=== PATIENT | female | born 1955 | race Caucasian/White ===

== ENCOUNTER 2019-10-26 21:35 | Emergency (ER) | payer BC, MEDICAID ==
[~2019-10-26] VITALS: Ht 165.1 cm; Wt 63.5 kg
[~2019-10-26 21:35] MED LIST: AZIT-62 PO; FOLI-43 PO; METH2.5T PO; NAPR-686 PO; PAIN MED; PRED5TAB3 PO; RABE20TA18 PO; TRAM50TA2 PO
[2019-10-26 21:40] VITALS: BP_SYST 171
[2019-10-26] MEDS ORDERED: DIPH-TET-PERTUS Vaccine 0.5 ML VIAL (ADACEL) I.M. ONE (22:00)
[2019-10-26] MEDS ORDERED: LIDOCAINE 1% 10 MG/ML, 20 ML MDV SUBCUT ONE (22:00)
[2019-10-26] MEDS ORDERED: BACITRACIN 1 GM OINT TP ONE (22:52)
[2019-10-26 22:59] VITALS: BP_SYST 136
== END 2019-10-26 22:59 | disposition home or self-care (01) ==
LOC: SED 21:35
DX: S91.111A Laceration without foreign body of right great toe without damage to nail, initial encounter (principal); K21.9 Gastro-esophageal reflux disease without esophagitis; Z79.899 Other long term (current) drug therapy; W25.XXXA Contact with sharp glass, initial encounter; Y93.89 Activity, other specified; Y92.89 Other specified places as the place of occurrence of the external cause; Y99.8 Other external cause status
CPT/HCPCS: 12001; 73660; 90471; 90715; 99283; J2001

== ENCOUNTER 2020-05-30 12:09 | Emergency (ER) | payer MEDICAID ==
[~2020-05-30] VITALS: Ht 167.6 cm; Wt 63.5 kg
[2020-05-30 12:20] VITALS: BP_SYST 158
--- NOTE | 2020-05-30 12:20 | NUR ---
Patient to ER bed 1 to gown for evaluation. Side rails up. REPORT RECEIVED FROM ARIANA GONSALES
--- NOTE | 2020-05-30 12:25 | NUR ---
PT REPORTS HAVING COVID VACCINE LAST THURSDAY AND HAS HAD LEFT UPPER ARM PAIN SINCE THEN. NO BRUISING OR SWELLING NOTED. TENDER TO THE TOUCH. PT IS [id number], V/S STABLE
--- NOTE | 2020-05-30 12:52 | NUR ---
ER at bedside examining patient.
[2020-05-30] MEDS ORDERED: HYDROcodone/ACETAMIN 10-325 MG TAB PO ONE (13:00)
[2020-05-30] MEDS ORDERED: MORPHINE SULFATE 10 MG/ML VIAL IM ONE (13:15)
[2020-05-30] MEDS ORDERED: ONDANSETRON 4 MG ODT TAB PO ONE (13:15)
--- NOTE | 2020-05-30 13:31 | NUR ---
Patient transported to radiology via WC, accompanied by STAFF.
[2020-05-30] MEDS ORDERED: MORPHINE 4 MG INJ. 4 MG/ML VIAL IM ONE (14:30)
[2020-05-30] MEDS ORDERED: KETAMINE 30 MG/3 ML SYRINGE IM ONE (14:30)
[2020-05-30] MEDS ORDERED: NAPR-688 PO (14:31)
[2020-05-30] MEDS ORDERED: PRED50TA PO (14:31)
[2020-05-30] MEDS ORDERED: HYDR-3927 PO (14:31)
--- NOTE | 2020-05-30 15:01 | NUR ---
UPDATE PROVIDED TO DAUGHTER, QUESTIONS ANSWERED /COMMUNICATED UNDERSTANDING
--- NOTE | 2020-05-30 15:20 | NUR ---
PT SLEEPING IN BED, NO S/SX OF DISTRESS, V/S STABLE
--- NOTE | 2020-05-30 16:30 | NUR ---
SW SON FOR STATUS UPDATE. DAUGHTER TO COME AND PICKUP ONCE DC'D. VERBALIZED UNDERSTANDING
[2020-05-30 16:50] VITALS: BP_SYST 142
--- NOTE | 2020-05-30 16:50 | NUR ---
Patient given written and verbal discharge instructions and verbalizes understanding. ER MD discussed with patient the results and treatment provided. Patient in stable condition. ID arm band removed. Rx of NORCO, NAPROXEN AND PREDNISONE given. Patient educated on pain management and to follow up with PMD. Pain Scale 0/10. Opportunity for questions provided and answered. Medication side effect fact sheet provided.
== END 2020-05-30 16:50 | disposition home or self-care (01) ==
LOC: SED 12:09
DX: M75.02 Adhesive capsulitis of left shoulder (principal); K21.9 Gastro-esophageal reflux disease without esophagitis; Z79.899 Other long term (current) drug therapy
CPT/HCPCS: 73200; 76376; 96372; 99284; J2270 ×2; Q0162

== ENCOUNTER 2022-05-01 07:24 | Day surgery (SDC) | payer MEDICAID ==
[~2022-05-01] VITALS: Ht 162.6 cm; Wt 63.5 kg
[~2022-05-01 07:24] MED LIST changes: -AZIT-62 PO; +AZIT-93 PO; +HYDR-3927 PO; +NAPR-688 PO; +PRED50TA PO; -PRED5TAB3 PO; +[UNRECOGNIZED DRUG - CODE] PO
[2022-05-01] MEDS ORDERED: MIDAZOLAM HCL 5 MG/5 ML VIAL ONE ×2 (10:04→10:17)
[2022-05-01] MEDS ORDERED: MEPERIDINE 50 MG/ML VIAL ONE (10:04)
[2022-05-01 12:34] VITALS: BP_SYST 116
== END 2022-05-01 11:55 | disposition home or self-care (01) ==
LOC: SDS 07:24 → SMU 07:27 → SDS 11:00
PROVIDERS: ATTEND Internal Medicine
DX: R19.7 Diarrhea, unspecified (principal); K63.5 Polyp of colon; K57.30 Diverticulosis of large intestine without perforation or abscess without bleeding; K64.8 Other hemorrhoids; Z86.010 Personal history of colon polyps; Z79.899 Other long term (current) drug therapy; Z20.822 Contact with and (suspected) exposure to COVID-19
CPT/HCPCS: 45380; 45385; 87426; 36415; 88305; 99152; 99153; G0378; J2250; J2175

== ENCOUNTER 2023-03-31 13:57 | Inpatient (IN) | payer MEDICAID, OTHER ==
[~2023-03-31] VITALS: Ht 165.1 cm; Wt 71.2 kg
[2023-03-31 14:23] VITALS: BP_SYST 152; PULSE 88; RESP 20; TEMP 97.8; O2SAT 93
[2023-03-31] MEDS: ONDANSETRON HCL 4 MG/2 ML VIAL IVP ONE (14:45)
[2023-03-31] MEDS: NACL 0.9% 1,000 ML IV ONE (14:45)
[2023-03-31] MEDS: MORPHINE 2 MG/ML INJ. SYRINGE IVP ONE (14:46)
[2023-03-31 15:16] LABS: BASOPHILS % (AUTO) 0.4 % (0.0-2.0); EOSINOPHILS # (AUTO) 0.2 K/uL (0.0-0.4); EOSINOPHILS % (AUTO) 2.4 % (0.0-4.0); HEMATOCRIT 36.2 % (36-48); HEMOGLOBIN 11.8 g/dL (12.0-16.0); LYMPHOCYTES # (AUTO) 2.6 K/uL (1.0-5.5); LYMPHOCYTES % (AUTO) 37.6 % (20.5-51.5); MEAN CORPUSCULAR HEMOGLOBIN 28 pg (27-31); MEAN CORPUSCULAR HGB CONC 33 % (32-36); MEAN CORPUSCULAR VOLUME 86 fL (79.0-98.0); MONOCYTES # (AUTO) 0.7 K/uL (0.0-1.0); MONOCYTES % (AUTO) 10.5 % (1.7-9.3); NEUTROPHILS # (AUTO) 3.4 K/uL (1.8-7.7); NEUTROPHILS % (AUTO) 49.1 % (40.0-70.0); PLATELET COUNT (AUTO) 271 K/uL (130-430); RED CELL DISTRIBUTION WIDTH 15.2 % (9.0-15.0); WHITE BLOOD COUNT (AUTO) 6.8 K/uL (4.8-10.8)
[2023-03-31 15:30] LABS: ANION GAP 9 (5-15); CALCIUM 8.9 mg/dL (8.4-11.0); CARBON DIOXIDE 27 mmol/L (23-29); CHLORIDE 105 mmol/L (98-107); CREATININE 0.61 mg/dL (0.55-1.30); GFR AFRICAN AMERICAN 126 mL/min (>90); GLUCOSE 91 mg/dL (74-106); SODIUM SERUM 141 mmol/L (136-145); UREA NITROGEN, BLOOD 16 mg/dL (8-21)
[2023-03-31 15:37] LABS: GFR NON AFRICAN-AMERICAN 104 mL/min (>90)
[2023-03-31] MEDS ORDERED: iohexoL 350 mgI/mL, 100 ML INFUS..BTL IV ONE (15:47)
[2023-03-31 15:49] LABS: ALANINE AMINOTRANSFERASE 29 U/L (12-78); ALBUMIN 3.6 g/dL (3.4-4.8); ASPARTATE AMINOTRANSFERASE 19 U/L (10-37); BILIRUBIN,DIRECT 0.1 mg/dL (0.0-0.3); CREATINE KINASE, TOTAL 69 U/L (26-192); LIPASE 24 U/L (16-77); PHOSPHORUS 3.4 mg/dL (2.7-4.5); TOTAL BILIRUBIN 0.3 mg/dL (0.0-1.0); TOTAL PROTEIN, SERUM 7.6 g/dL (6.4-8.3)
[2023-03-31 16:24] LABS: PROTHROMBIN TIME 10.3 SECS (9.5-12.5)
[2023-03-31] MEDS ORDERED: NOR10 PO (17:23)
[2023-03-31] MEDS ORDERED: LIP10 PO (17:23)
[2023-03-31] MEDS ORDERED: APIX5TAB PO (17:23)
[2023-03-31] MEDS ORDERED: LOSA-412 PO (17:23)
[2023-03-31] MEDS: ASPIRIN 81 MG TAB.CHEW PO ONE (17:56)
[2023-03-31] MEDS: ENOXAPARIN SODIUM 80 MG/0.8 ML SYRINGE SUBCUT ONE (18:52)
[2023-03-31] MEDS: *LOVENOX 1MG/KG Q12H/PHARMACY XX ONE (18:52)
[2023-03-31] MEDS ORDERED: LORazepam 2 MG/ML VIAL IVP PRN (20:30)
[2023-03-31] MEDS ORDERED: NALOXONE HCL 0.4 MG/ML AMP (NARCAN) IVP PRN ×2 (20:30)
[2023-03-31] MEDS ORDERED: HYDROcodone/ACETAMIN 10-325 MG TAB PO PRN (20:30)
[2023-03-31] MEDS ORDERED: HYDROcodone/ACETAMIN 5-325 MG TAB (NORCO/ VICODIN) PO PRN (20:30)
[2023-03-31] MEDS ORDERED: ACETAMINOPHEN 325 MG TABLET PO PRN (20:45)
[2023-03-31] MEDS: ATORVASTATIN 10 MG TABLET PO SCH (21:34)
[2023-03-31] MEDS: NORMAL SALINE 5 ML DISP.SYRIN IVF SCH (22:03)
[2023-04-01] MEDS ORDERED: NON-FORMULARY MEDICATION (Apixaban (Eliquis) 5 MG) PO SCH (09:00)
[2023-04-01 09:30] VITALS: BP_SYST 150; PULSE 74; RESP 18; TEMP 97.5; O2SAT 99
[2023-04-01 10:16] LABS: BASOPHILS % (AUTO) 0.5 % (0.0-2.0); EOSINOPHILS # (AUTO) 0.1 K/uL (0.0-0.4); EOSINOPHILS % (AUTO) 2.1 % (0.0-4.0); HEMATOCRIT 35.4 % (36-48); HEMOGLOBIN 11.5 g/dL (12.0-16.0); LYMPHOCYTES # (AUTO) 2.2 K/uL (1.0-5.5); LYMPHOCYTES % (AUTO) 30.9 % (20.5-51.5); MEAN CORPUSCULAR HEMOGLOBIN 28 pg (27-31); MEAN CORPUSCULAR HGB CONC 33 % (32-36); MEAN CORPUSCULAR VOLUME 85 fL (79.0-98.0); MONOCYTES # (AUTO) 0.5 K/uL (0.0-1.0); MONOCYTES % (AUTO) 6.3 % (1.7-9.3); NEUTROPHILS # (AUTO) 4.4 K/uL (1.8-7.7); NEUTROPHILS % (AUTO) 60.2 % (40.0-70.0); PLATELET COUNT (AUTO) 249 K/uL (130-430); RED BLOOD CELL COUNT(AUTO) 4.15 MIL/uL (4.2-6.2); RED CELL DISTRIBUTION WIDTH 15.2 % (9.0-15.0); WHITE BLOOD COUNT (AUTO) 7.2 K/uL (4.8-10.8)
[2023-04-01] MEDS: amLODIPine BESYLATE 10 MG TABLET PO SCH (10:17)
[2023-04-01] MEDS: ENOXAPARIN SODIUM 80 MG/0.8 ML SYRINGE SUBCUT SCH (10:18)
[2023-04-01] MEDS: ASPIRIN 81 MG TABLET(ECOTRIN) PO SCH (10:18)
[2023-04-01] MEDS: LOSARTAN POTASSIUM 25 MG TABLET PO SCH (10:18)
[2023-04-01 10:31] LABS: ALBUMIN 3.2 g/dL (3.4-4.8); CALCIUM 8.3 mg/dL (8.4-11.0); CREATININE 0.58 mg/dL (0.55-1.30); PHOSPHORUS 2.8 mg/dL (2.7-4.5); POTASSIUM 3.7 mmol/L (3.5-5.1); THYROID STIMULATING HORMONE 1.1 uIu/mL (0.34-4.82); TOTAL BILIRUBIN 0.4 mg/dL (0.0-1.0); TOTAL PROTEIN, SERUM 6.9 g/dL (6.4-8.3)
[2023-04-01] MEDS ORDERED: ROMO210S SQ (13:45)
[2023-04-01] MEDS: SUCRALFATE 1 GM TABLET PO SCH (17:28)
[2023-04-01] MEDS: ONDANSETRON HCL 4 MG/2 ML VIAL IVP PRN (17:28)
[2023-04-01 20:00] VITALS: BP_SYST 100; PULSE 76; RESP 16; TEMP 98.2; O2SAT 96
[2023-04-01] MEDS: APIXABAN 2.5 MG TABLET PO SCH (20:33)
[2023-04-01] MEDS: PANTOPRAZOLE SODIUM 40 MG TAB PO SCH (20:34)
[2023-04-01] MEDS: ACETAMINOPHEN 325 MG TABLET PO PRN (20:35)
[2023-04-02 01:43] VITALS: BP_SYST 125; PULSE 69; RESP 16; TEMP 97.8; O2SAT 96
[2023-04-02 07:45] VITALS: O2SAT 99
[2023-04-02 08:00] VITALS: BP_SYST 108; PULSE 74; RESP 16; TEMP 98.6; O2SAT 96
[2023-04-02] MEDS: REGADENOSON 0.4 MG/5 ML SYRINGE IVP ONE (11:59)
[2023-04-02 12:00] VITALS: BP_SYST 143; PULSE 74; RESP 16; TEMP 97.7; O2SAT 96
[2023-04-02 15:49] VITALS: BP_SYST 135; PULSE 82; RESP 18; TEMP 97.7; O2SAT 95
== END 2023-04-02 16:50 | disposition home or self-care (01) | DRG 203 ==
LOC: SED 13:57 → STU 16:39
PROVIDERS: ADMIT Preventive Medicine Preventive Medicine/Occupational Environmental Medicine; ATTEND Specialist
DX: M94.0 Chondrocostal junction syndrome [Tietze] (principal); E78.5 Hyperlipidemia, unspecified; I10 Essential (primary) hypertension; K21.9 Gastro-esophageal reflux disease without esophagitis; Z79.891 Long term (current) use of opiate analgesic; Z79.899 Other long term (current) drug therapy; Z86.718 Personal history of other venous thrombosis and embolism; Z79.01 Long term (current) use of anticoagulants
CPT/HCPCS: 36415; 71045; 71275; 76376; 80048; 80053; 80061; 80076; 82550; 83690; 83735; 83880; 84100; 84443; 84484; 85025; 85379; 85610; 85651; 85730; 93005; 93017; 93306; 99285; A9500; G0378; J1650; J2270; J2405; J2785; Q9967

== ENCOUNTER 2023-07-28 07:28 | Day surgery (SDC) | payer OTHER ==
[~2023-07-28] VITALS: Ht 154.9 cm; Wt 63.5 kg
[~2023-07-28 07:28] MED LIST changes: +APIX5TAB PO; -AZIT-93 PO; -FOLI-43 PO; -HYDR-3927 PO; +LIP10 PO; +LOSA-412 PO; -METH2.5T PO; -NAPR-686 PO; -NAPR-688 PO; +NOR10 PO; -PRED50TA PO; -RABE20TA18 PO; +ROMO210S SQ; -TRAM50TA2 PO; -[UNRECOGNIZED DRUG - CODE] PO
[2023-07-28] MEDS ORDERED: MEPERIDINE 100 MG INJ. 100 MG/ML VIAL ONE (07:42)
[2023-07-28] MEDS ORDERED: MIDAZOLAM HCL 5 MG/5 ML VIAL ONE (07:42)
[2023-07-28 11:57] VITALS: O2SAT 98
[2023-07-28 15:53] VITALS: BP_SYST 112; PULSE 82; RESP 16
== END 2023-07-28 10:45 | disposition home or self-care (01) ==
LOC: SDS 07:28 → SMU 07:29 → SDS 10:45
PROVIDERS: ATTEND Internal Medicine Gastroenterology
DX: K21.00 Gastro-esophageal reflux disease with esophagitis, without bleeding (principal); K29.50 Unspecified chronic gastritis without bleeding; K22.2 Esophageal obstruction; R10.9 Unspecified abdominal pain; K44.9 Diaphragmatic hernia without obstruction or gangrene; I10 Essential (primary) hypertension; E78.5 Hyperlipidemia, unspecified; M19.90 Unspecified osteoarthritis, unspecified site; Z87.891 Personal history of nicotine dependence; Z79.899 Other long term (current) drug therapy
CPT/HCPCS: 43249; 43239; 99152; 87081; 36415; 88305; 88312; 88313; G0378; J2250; J2175